=== PATIENT | male | born 1980 | race Caucasian/White ===

== ENCOUNTER → 2020-08-02 | Outpatient (CLI) | payer BC, OTHER | LOC: KOH-I 14:40 | DX: R10.9 Unspecified abdominal pain (principal); K57.90 Diverticulosis of intestine, part unspecified, without perforation or abscess without bleeding | CPT/HCPCS: 74176 ==

== ENCOUNTER → 2020-08-12 | Outpatient (CLI) | payer BC, OTHER | LOC: EXRD 14:43 | DX: N50.819 Testicular pain, unspecified (principal) | CPT/HCPCS: 76870 ==